=== PATIENT | male | born 1970 | race Hispanic/Latino ===

== ENCOUNTER 2022-06-06 00:08 | Emergency (ER) | payer BC ==
--- OUTSIDE RECORDS SUMMARY | 2022-06-06 00:11 | XMS REPORT | Continuity of Care Document ---
:1970 Author Organization [facility] t Address [address] [facility] [address] [place] [id number] Care Team Providers Name Role Phone PCP, PATIENT DOES NOT HAVE A Primary Care Physician Lemuel Camejo RN, Zahra Martinez Attending Clinician Unavailable ROSALBA AGGARWAL Attending Clinician Unavailable Only, Emmanuel Db Test Attending Clinician Unavailable Rosalba Mock Attending Clinician Payers Payer Name Policy Type Policy Number Effective Date Expiration Date S ource Problems This patient has no known problems. Allergies, Adverse Reactions, Alerts Allergy Allergy Status Severity Reaction(s) Onset Inactive Treating Comm ents Source Name Type Date Date Clinician NO KNOWN Drug Active [facility]ERGIE Class [facility] Social History Social Habit Start Date Stop Date Quantity Comments Source Exposure to Not sure [facility] SARS-CoV-2 (event) [facility] Sex Assigned At [birth year] [facility] 00:00:00 00:00:00 [facility] Smoking Status Start Date Stop Date Source Unknown if ever smoked [facility] Medications This patient has no known medications. Procedures This patient has no known procedures. Encounters Start End Encounter Admission Attending Care Care Encounter Source Date/Time Date/Time Type Type Clinicians Facility Department ID 2021-04-24 2021-04-24 Telephone PAUL Camejo [id number] [facility] 00:00:00 00:00:00 Zahra SALDIVAR [id number] i [facility] [id number] Tra as [phone] [place] [address] [place] 2021-04-23 2021-04-23 Outpatient R [facility] [id number] Univers 18:00:00 18:48:34 ROSALBA cruz [facility] 2021-04-23 2021-04-23 Laboratory Only, Ang Db Test [facility] [id number] [facility] 18:00:00 18:15:00 Only [id number] [facility] [id number] Tra as KATHRYN?BLEA [id number] Ar luis [address] MEDICAL OFFICE BUILDING Results This patient has no known results.
[2022-06-06 00:58] LABS: Absolute Lymphocytes (CBC) 2.5 K/uL (0.7-4.9); Lymphocytes % 36.7 % (15.3-44.8); MPV 8.6 fL (7.6-11.3); Protime INR 0.99; RBC Red Blood Cell Count 4.94 M/uL (4.33-5.43)
[2022-06-06] MEDS ORDERED: KETOROLAC 30 MG/ML INJ ONE (00:59)
[2022-06-06 01:27] LABS: Albumin 3.8 g/dL (3.4-5.0); Bilirubin Direct 0.1 mg/dL (0-0.2); Bilirubin Total 0.4 mg/dL (0.2-1.0); Potassium 3.7 mmol/L (3.5-5.1); Protein, Total 7.1 g/dL (6.4-8.2); Troponin High Sensitivity 4.6 pg/mL (<58.9)
--- NOTE | 2022-06-06 01:34 | ER ---
Nurse's Notes [facility] Name: Say Sahni Age: 52 yrs Sex: Male : 1970 Arrival Date: 06/06/2022 Time: 00:12 Bed 7 Private MD: Diagnosis: Chest wall pain, intercostal muscle strain Presentation: 06/06 00:19 Chief complaint: Patient states: I have been coughing for about 2 weeks now. It is kd3 getting better but my ribs hurt on the left side. every time i lay down it is aggravated and it comes back. I do not really have any other symptoms. Coronavirus screen: Vaccine status: Patient reports receiving the 2nd dose of the covid vaccine. Ebola Screen: No symptoms or risks identified at this time. Initial Sepsis Screen: Does the patient meet any 2 criteria? No. Patient's initial sepsis screen is negative. Does the patient have a suspected source of infection? No. Patient's initial sepsis screen is negative. Risk Assessment: Do you want to hurt yourself or someone else? Patient reports no desire to harm self or others. Onset of symptoms was June 06, 2022. 00:19 Method Of Arrival: Ambulatory kd3 00:19 Acuity: SUDHIR 3 kd3 Triage Assessment: 00:21 General: Appears uncomfortable, Behavior is calm, cooperative. Pain: Complains of pain kd3 in left lateral anterior chest. Cardiovascular: Patient's skin is warm and dry. Historical: - Allergies: 00:21 No Known Allergies; kd3 - PMHx: 00:21 Hypertensive disorder; Diabetes mellitus; Hypercholesterolemia; kd3 - Immunization history:: Adult Immunizations up to date. - Social history:: Smoking status: Patient denies any tobacco usage or history of. Screenin:44 [facility] ED Fall Risk Assessment (Adult) Score/Fall Risk Level 0 - 2 = Low Risk. Abuse as6 screen: Denies threats or abuse. Denies injuries from another. Nutritional screening: No deficits noted. Tuberculosis screening: No symptoms or risk factors identified. Vital Signs: 00:18 BP 171 / 94; Pulse 80; Resp 19; Temp 98.5; Pulse Ox 98% on R/A; Weight 95.25 kg; Height kd3 5 ft. 6 in. (167.64 cm); 00:22 BP 161 / 88; Pulse 80; Resp 18; Pulse Ox 98% on R/A; kd3 01:35 BP 140 / 91; Pulse 85; Resp 20 S; Pulse Ox 97% on R/A; as6 00:18 Body Mass Index 33.89 (95.25 kg, 167.64 cm) kd3 ED Course: 00:12 Patient arrived in ED. jj6 00:21 Triage completed. kd3 00:21 Arm band placed on left wrist. kd3 00:27 Daniel Arenas MD is Attending Physician. sp3 00:34 Sanjeev Miller, RN is Primary Nurse. as6 00:40 XRAY Chest (1 view) In Process Unspecified. EDMS 00:43 Initial lab(s) drawn, by me, sent to lab. Inserted saline lock: 20 gauge in right ll3 antecubital area, using aseptic technique. Blood collected. 01:43 Placed in gown. Bed in low position. Call light in reach. as6 01:44 No provider procedures requiring assistance completed. IV discontinued, intact, as6 bleeding controlled, No redness/swelling at site. Pressure dressing applied. Administered Medications: 00:58 Drug: Ketorolac 30 mg Route: IVP; Site: right antecubital; ll3 01:43 Follow up: Response: No adverse reaction as6 Medication: 01:44 VIS not applicable for this client. as6 Outcome: 01:34 Discharge ordered by . sp3 01:44 Discharged to home ambulatory. as6 01:44 Condition: stable 01:44 Discharge instructions given to patient, Instructed on discharge instructions, follow up and referral plans. medication usage, Demonstrated understanding of instructions, follow-up care, medications, Prescriptions given X 2. 01:44 Patient left the ED. as6 Signatures: Dispatcher [employer] EDIN Daniel Arenas MD MD sp3 Aileen Rosas jj6 Sanjeev Miller, RN SALVATORE as6 Juan Soto RN RN 3 Rosa Maria Villagran RN RN kd3 Corrections: (The following items were deleted from the chart) 00:28 00:19 Acuity: SUDHIR 4 kd3 kd3
--- NOTE | 2022-06-06 01:34 | EDPHYS ---
Physician Documentation [facility] Name: Say Sahni Age: 52 yrs Sex: Male : 1970 Arrival Date: 06/06/2022 Time: 00:12 Bed 7 Private MD: ED Physician Daniel Arenas HPI: 06/06 00:42 This 52 yrs old Male presents to ER via Ambulatory with complaints of Chest sp3 Pain, Cough. 00:42 52-year-old male with history of hypertension, diabetes presents with chief complaint sp3 left-sided chest wall pain. Patient states he has been having cough off and on for the last 3 to 4 days and tonight as he was falling asleep he continued to cough and then had sudden onset of severe sharp left-sided chest wall pain that is positional and it also hurts when palpated. He denies substernal pain, jaw pain, pain on his left arm, jaw pain, right-sided chest pain, epigastric pain, nausea, back pain, fever, or any other symptoms as a part of ROS at this time. Patient has not had any prior cardiac history or prior [place]. No risk factors for DVT bleeding recent surgery/procedure or prolonged immobilized state or travel.. Historical: - Allergies: 00:21 No Known Allergies; kd3 - PMHx: 00:21 Hypertensive disorder; Diabetes mellitus; Hypercholesterolemia; kd3 - Immunization history:: Adult Immunizations up to date. - Social history:: Smoking status: Patient denies any tobacco usage or history of. ROS: 00:43 Constitutional: Negative for fever, chills, and weight loss, Eyes: Negative for injury, sp3 pain, redness, and discharge, ENT: Negative for injury, pain, and discharge, Neck: Negative for injury, pain, and swelling, Abdomen/GI: Negative for abdominal pain, nausea, vomiting, diarrhea, and constipation, Back: Negative for injury and pain, MS/Extremity: Negative for injury and deformity, Skin: Negative for injury, rash, and discoloration, Neuro: Negative for headache, weakness, numbness, tingling, and seizure, Psych: Negative for depression, anxiety, suicide ideation, homicidal ideation, and hallucinations, Allergy/Immunology: Negative for hives, rash, and allergies, Endocrine: Negative for neck swelling, polydipsia, polyuria, polyphagia, and marked weight changes. 00:43 All other systems are negative. Exam: 00:44 Constitutional: This is a well developed, well nourished patient who is awake, alert, sp3 and in no acute distress. Head/Face: Normocephalic, atraumatic. Eyes: Pupils equal round and reactive to light, extra-ocular motions intact. Lids and lashes normal. Conjunctiva and sclera are non-icteric and not injected. Cornea within normal limits. Periorbital areas with no swelling, redness, or edema. Neck: Trachea midline, no thyromegaly or masses palpated, and no cervical lymphadenopathy. Supple, full range of motion without nuchal rigidity, or vertebral point tenderness. No Meningismus. Cardiovascular: Regular rate and rhythm with a normal S1 and S2. No gallops, murmurs, or rubs. Normal PMI, no JVD. No pulse deficits. Respiratory: Lungs have equal breath sounds bilaterally, clear to auscultation and percussion. No rales, rhonchi or wheezes noted. No increased work of breathing, no retractions or nasal flaring. Abdomen/GI: Soft, non-tender, with normal bowel sounds. No distension or tympany. No guarding or rebound. No evidence of tenderness throughout. Back: No spinal tenderness. No costovertebral tenderness. Full range of motion. Skin: Warm, dry with normal turgor. Normal color with no rashes, no lesions, and no evidence of cellulitis. MS/ Extremity: Pulses equal, no cyanosis. Neurovascular intact. Full, normal range of motion. Neuro: Awake and alert, GCS 15, oriented to person, place, time, and situation. Cranial nerves II-XII grossly intact. Motor strength 5/5 in all extremities. Sensory grossly intact. Cerebellar exam normal. Normal gait. Psych: Awake, alert, with orientation to person, place and time. Behavior, mood, and affect are within normal limits. 00:44 Chest/axilla: Intercostal muscle on the left side mid axillary line demonstrates acute pain to palpation without crepitus. Lung sounds are normal bilateral.. 01:22 ECG was reviewed by the Attending Physician. EKG demonstrates normal sinus rhythm at 77 sp3 bpm with normal intervals, normal QRS, normal axis, normal ST/T-segment without evidence of acute ischemia. Vital Signs: 00:18 BP 171 / 94; Pulse 80; Resp 19; Temp 98.5; Pulse Ox 98% on R/A; Weight 95.25 kg; Height kd3 5 ft. 6 in. (167.64 cm); 00:22 BP 161 / 88; Pulse 80; Resp 18; Pulse Ox 98% on R/A; kd3 01:35 BP 140 / 91; Pulse 85; Resp 20 S; Pulse Ox 97% on R/A; as6 00:18 Body Mass Index 33.89 (95.25 kg, 167.64 cm) kd3 MDM: 00:44 Data reviewed: vital signs, nurses notes, lab test result(s), EKG, radiologic studies. sp3 ED course: 52-year-old male with left-sided chest wall pain. Differential diagnosis includes pulled intercostal muscle, pleurisy, pneumothorax, and to a much lesser degree acute coronary syndrome including [place], pneumonia, pulmonary embolism. I do not believe patient has these latter items or any other critical findings including sepsis or shock. Will obtain chest x-ray, EKG and laboratory values including troponin level to fully assess presentation. Ketorolac 30 mg IV will be given for pain control for most likely diagnosis of pulled intercostal muscle. If work-up is negative we will safely discharge patient home to PCP follow-up and continued outpatient management.. 01:33 ED course: Laboratory values, chest x-ray and EKG were all normal. Patient feels better sp3 with ketorolac. Will discharge patient home with diagnosis muscle strain on diclofenac.. 01:34 Patient medically screened. 06/06 00:28 Order name: Basic Metabolic Panel; Complete Time: 06/06 00:28 Order name: CBC with Diff; Complete Time: 06/06 00:28 Order name: LFT's; Complete Time: 06/06 00:28 Order name: Magnesium; Complete Time: 06/06 00:28 Order name: NT PRO-BNP; Complete Time: 06/06 00:28 Order name: PT-INR; Complete Time: :06/06 00:28 Order name: Troponin HS; Complete Time: 06/06 00:28 Order name: XRAY Chest (1 view) 28 00:28 Order name: EKG; Complete Time: 00:29 sp3 06/06 00:28 Order name: Cardiac monitoring; Complete Time: 00:53 sp3 06/06 00:28 Order name: EKG - Nurse/Tech; Complete Time: 00:53 sp3 06/06 00:28 Order name: IV Saline Lock; Complete Time: 00:42 sp3 06/06 00:28 Order name: Labs collected and sent; Complete Time: 00:42 sp3 06/06 00:28 Order name: O2 Per Protocol; Complete Time: 00:42 sp3 06/06 00:28 Order name: O2 Sat Monitoring; Complete Time: 00:42 sp3 Administered Medications: 00:58 Drug: Ketorolac 30 mg Route: IVP; Site: right antecubital; ll3 01:43 Follow up: Response: No adverse reaction as6 Disposition Summary: 06/06/22 01:34 Discharge Ordered Location: Home sp3 Condition: Stable sp3 Diagnosis - Chest wall pain, intercostal muscle strain sp3 Followup: sp3 - With: Private Physician - When: Upon discharge from the Emergency Department - Reason: Recheck today's complaints Discharge Instructions: - Discharge Summary Sheet sp3 - Chest Wall Pain sp3 Forms: - Medication Reconciliation Form sp3 - Thank You Letter sp3 - Antibiotic Education sp3 - Prescription Opioid Use sp3 Prescriptions: - Diclofenac Sodium 75 mg Oral Tablet Sustained Release - take 1 tablet by ORAL route 2 times per day; 30 tablet; Refills: 0, Product sp3 Selection Permitted - Tessalon Perles 100 mg Oral Capsule - take 1 capsule by ORAL route every 8 hours As needed; 15 capsule; Refills: 0, sp3 Product Selection Permitted Signatures: Dispatcher [employer] Daniel Whitten MD MD sp3 Juan Soto RN RN ll3 Rosa Maria Villagran RN RN nadira3 Sanjeev Miller RN as6
[2022-06-06 02:11] VITALS: BP 140/91; O2SAT 97
--- NOTE | 2022-06-06 11:21 | RAD REPORT ---
EXAM DESCRIPTION: RAD - Chest Single View - 06/06/2022 12:38 am CLINICAL HISTORY: 52 years, Male, CHEST PAIN COMPARISON: None. FINDINGS: Single view of the chest was obtained portable. No prior films are available for compariso n. The lung volume is decreased. The cardiomediastinal silhouette demonstrate to be unremarkable. The heart is not enlarged. The thoracic aorta is unremarkable. The pulmonary vasculature is normal distr ibution. Costophrenic angles are sharp. No areas of consolidation or masses are seen. The rest of the soft tissue and bony structures demonstrate to be unremarkable. IMPRESSION: Low lung volume. No acute cardiopulmonary disease seen. Electronically signed by: Ernie Cornell MD 06/06/2022 12:54 AM LSAT INSTRUCTOR Due to temporary technical issues with the PACS/Fluency reporting system, reports are being signed by the in house radiologists without review as a courtesy to insure prompt reporting. The interpreting radiologist is fully responsible for the content of the report.
--- NOTE | 2022-06-06 12:50 | EKG ---
Test Date: 2022-06-06 Test Time: 00:47:44 Freight Checker: LL MEASUREMENT RESULTS: Intervals: Rate: 77 FL: 178 QRSD: 94 QT: 382 QTc: 432 Institute: P: 39 FL: 178 QRS: -14 T: 41 INTERPRETIVE STATEMENTS: Normal sinus rhythm Normal ECG No previous ECG available for comparison Electronically Signed On 06-06-22 12:48:53 THERAPEUTIC RECREATION SPECIALIST by Vinay Cornelius
== END 2022-06-06 01:44 | disposition home or self-care (01) ==
LOC: ER 00:08
DX: S29.011A Strain of muscle and tendon of front wall of thorax, initial encounter (principal); I10 Essential (primary) hypertension
CPT/HCPCS: 36415; 71045; 80048; 80076; 83735; 83880; 84484; 85025; 85610; 93005; 96374; 99284